=== PATIENT | female | born 1950 | race Caucasian/White ===

== ENCOUNTER 2023-06-16 09:53 | Outpatient (CLI) | payer MEDICARE, BC, SELFPAY ==
[2023-06-16 14:24] LABS: PCR FLU A Negative PCR FLU A (Negative); PCR FLU B Negative PCR FLU B (Negative)
[2023-06-16 14:29] LABS: SARS PCR* POSITIVE SARS-CoV-2 (Negative)
== END 2023-06-16 09:54 | disposition home or self-care (01) ==
PROVIDERS: PCP Family Medicine; Visit Provider Family Medicine
DX: U07.1 COVID-19 (principal)
CPT/HCPCS: 87631